=== PATIENT | female | born 1955 | race Caucasian/White ===

== ENCOUNTER 2017-04-08 22:38 | Inpatient (IN) | payer MEDICARE ==
[~2017-04-08] VITALS: Ht 160 cm; Wt 49.0 kg
--- NOTE | 2017-04-08 22:38 | NUR ---
ERNESTO MATHIAS FROM HOTEL ROOM. PER EMS REPORT, HOTEL STAFF CALLED 911 FOR PT ETOH. PLACED ON MONITOR . AWAITING MD ORDER
--- NOTE | 2017-04-08 23:11 | NUR ---
GRINDING MACHINE OPERATOR AT BEDSIDE FOR BLOOD DRAW
[2017-04-08] MEDS: IV NS 0.9% 1,000 ML BAG IV ONE ×2 (23:17→23:27)
[2017-04-08 23:27] LABS: BASOPHILS % (AUTO) 0.1 % (0.0-2.0); HEMATOCRIT 39 % (33-45); HEMOGLOBIN 13.3 g/dL (11.5-14.8); LYMPHOCYTES # (AUTO) 0.4 /CMM (0.8-4.8); LYMPHOCYTES % (AUTO) 6.1 % (20.0-44.0); MEAN CORPUSCULAR HEMOGLOBIN 33 PG (26.0-33.0); MEAN CORPUSCULAR HGB CONC 34 g/dl (31.0-36.0); MEAN CORPUSCULAR VOLUME 97 fL (82-100); MONOCYTES # (AUTO) 0.3 /CMM (0.1-1.30); MONOCYTES % (AUTO) 4.3 % (2.0-12.0); NEUTROPHILS # (AUTO) 6.6 /CMM (1.8-8.9); NEUTROPHILS % (AUTO) 89.5 % (43.0-81.0); PLATELET COUNT (AUTO) 139 /CMM (150-450); RDW COEFFICIENT OF VARIATION 16.2 (11.5-15.0); RED BLOOD CELL COUNT(AUTO) 4.04 MIL/uL (4.0-5.2); WHITE BLOOD COUNT (AUTO) 7.4 K/uL (4.3-11.0)
--- NOTE | 2017-04-08 23:28 | NUR ---
GAVE REPORT TO ANDRES FOR HANH
[2017-04-08 23:39] LABS: CALCIUM, SERUM 8.1 mg/dL (8.5-10.1); CARBON DIOXIDE 22 mmol/L (21-32); CHLORIDE 85 mmol/L (98-107); CREATININE 0.5 mg/dL (0.6-1.3); GLUCOSE 115 mg/dL (74-106); POTASSIUM 4.3 mmol/L (3.5-5.1); SODIUM SERUM 123 mmol/L (136-145); UREA NITROGEN, BLOOD 8 mg/dL (7-18)
[2017-04-08 23:41] LABS: INR 0.89 (0.87-1.13); PROTHROMBIN TIME 9.5 SECS (9.5-12.7)
[2017-04-08 23:44] LABS: ALANINE AMINOTRANSFERASE 177 U/L (12-78); ALBUMIN 4.5 g/dL (3.4-5.0); ALKALINE PHOSPHATASE 130 U/L (46-116); ASPARTATE AMINOTRANSFERASE 203 U/L (15-37); BILIRUBIN,DIRECT 0.3 mg/dL (0.0-0.2); BILIRUBIN,TOTAL 0.9 mg/dL (0.2-1.0); TOTAL PROTEIN, SERUM 7.5 g/dL (6.4-8.2)
[2017-04-08 23:45] LABS: ACETAMINOPHEN 0 ug/ml (10-30); SALICYLATE 1.1 mg/dL (2.8-20.0); VALPROIC ACID < 3 ug/mL (50-100)
[2017-04-09] MEDS ORDERED: diphenhydrAMINE HCL 50 MG/ML VIAL ONE (00:13)
[2017-04-09] MEDS ORDERED: HALOPERIDOL LACTATE INJ 5 MG/ML VIAL ONE (00:14)
--- NOTE | 2017-04-09 00:32 | NUR ---
MEDICATED PT ORDERED. 5MG HALDOL IVP AND 12.5 BENADRYL IVP
[2017-04-09] MEDS ORDERED: HALOPERIDOL LACTATE INJ 5 MG/ML VIAL IV ONE (01:00)
[2017-04-09] MEDS ORDERED: diphenhydrAMINE HCL 50 MG/ML VIAL IV ONE (01:00)
[2017-04-09] MEDS ORDERED: IV NS 0.9% 1,000 ML BAG IV ONE (02:30)
--- NOTE | 2017-04-09 02:50 | NUR ---
RECEIVED PT, PT APPEARS COMFORTABLE. NO SOB NOTED. NAD NOTED. NO NVD AT THIS TIME. PT HAS IV ON LEFT FOOT 22G, INTACT AND PATENT. NO S/S INFECTION OR INFILTRATION NOTED.
--- NOTE | 2017-04-09 02:51 | NUR ---
PT NOTED WITH DISCOLORATION THROUGHOUT BODY. PT AOX3.
--- NOTE | 2017-04-09 02:54 | NUR ---
PT TO CT VIA DIASY
[2017-04-09] MEDS ORDERED: Thiamine 100 MG/ML VIAL ONE (02:57)
[2017-04-09] MEDS ORDERED: Magnesium 1GM/D5W 100ML PREMIX 200 ML IV ONE (02:57)
[2017-04-09] MEDS ORDERED: Thiamine 100 MG in IV D5W 50 ML IV ONE (03:00)
[2017-04-09] MEDS ORDERED: Magnesium 1 GM/2 ML VIAL IV ONE (03:00)
[2017-04-09] MEDS ORDERED: IV D5/0.45 NACL 1,000 ML IV ONE (03:00)
--- NOTE | 2017-04-09 03:11 | NUR ---
PT RETURNED FROM CT.
--- NOTE | 2017-04-09 03:25 | NUR ---
LAB AT BEDSIDE FOR BLOOD DRAW.
[2017-04-09 03:46] LABS: CALCIUM, SERUM 6.8 mg/dL (8.5-10.1); CREATININE 0.5 mg/dL (0.6-1.3); POTASSIUM 4.1 mmol/L (3.5-5.1)
[2017-04-09] MEDS ORDERED: LORAZEPAM INJ 2 MG/ML VIAL ONE (04:14)
[2017-04-09] MEDS ORDERED: LORAZEPAM INJ 2 MG/ML VIAL IV ONE (04:30)
--- NOTE | 2017-04-09 06:19 | NUR ---
PER ENMA TO FAX CT HEAD RESULTS.
--- NOTE | 2017-04-09 07:23 | NUR ---
REPORT GIVEN TO MARY GRACE JOSUE FOR HANH.
--- NOTE | 2017-04-09 08:00 | NUR ---
Patient is resting comfortably in bed with eyes closed. Easily aroused. VSS
--- NOTE | 2017-04-09 11:15 | NUR ---
PT AAOX3. NOTED POOPED ALL OVER HERSELF. VSS.
--- NOTE | 2017-04-09 11:50 | NUR ---
PT ABLE TO AMBULATE, NOTED STEADY GAIT BUT REFUSES TO BE DISCHARGED. PULLED OUT IV ACCESS. MADE AWARE.
--- NOTE | 2017-04-09 12:15 | NUR ---
CALLED [facility] CLINICIAN FOR PSYCH EVAL
[2017-04-09] MEDS ORDERED: DIAZ5TAB4 PO (12:58)
[2017-04-09] MEDS ORDERED: CARI350T PO (12:58)
--- NOTE | 2017-04-09 16:10 | NUR ---
REPORT GIVEN TO ESTRELLA BRODY FOR GPS ROOM 219
[2017-04-09 16:45] VITALS: BP 155/96
--- NOTE | 2017-04-09 16:45 | NUR ---
[id number]: PT IS 61 YEARS OLD FEMALE ADMITTED ON 5149 FOR GRAVELY DISABLED. ACCORDING TO THE HOLD, PT CAME FROM A HOTEL ROOM. PT REPORTED TO HAVE A HISTORY OF DEPRESSION, AND ANXIETY. PT HAD FECES ON HANDS AND FINGERNAILS. UPON [id number] ASSESSMENT PT APPEARED ANXIOUS, RESTLESS, UNKEMPT, DISHEVELED. MALODOROUS. PT UNABLE TO GIVE ADDRESS WHERE PT LIVES. PT UNABLE TO CARE FOR SELF. PT STATED, "I HAVE SEVERE ANXIETY. I'M GOING THROUGH A DIVORCE, I CAN'T STAND UP OR TAKE CARE OF MYSELF." PT HAS DEPRESSION, PSYCHOSIS, EPILEPSY. NOTIFIED DR. DUCKWORTH AND DR. HARRISON. NOTIFIED FAMILY. BELONGINGS STORED AND DOCUMENTED. MRSA DONE. SKIN ASSESSMENT DONE. PROVIDE PT'S RIGHT BOOKLET. DISCUSS MEAL TIMES, FRESH AIR BREAKS.ALL PAPERWORK AND COMPUTER DOCUMENTATION. WILL ENDORSE TO INCOMING NURSE TO DOUBLE CHECK ALL PAPERWORK AND COMPUTER DOCUMENTATION.
[2017-04-09] MEDS ORDERED: MAGNESIUM HYDROXIDE 30 ML UDC PO PRN (17:00)
[2017-04-09] MEDS ORDERED: MAG HYDROX/AL HYDROX/SIMETH 30 ML UDC PO PRN (17:00)
[2017-04-09] MEDS: clonazePAM 0.5 MG TABLET PO PRN (18:07)
--- NOTE | 2017-04-09 18:07 | NUR ---
[id number]: GAVE KLONOPIN 0.25 MG PO DUE TO SEVERE ANXIETY UPON PT REQUEST AND WILL CONTINUE TO MONITOR FOR EFFECTIVENESS OF MEDICATION
[2017-04-09 20:20] VITALS: BP 154/93
[2017-04-10] MEDS: clonazePAM 0.5 MG TABLET PO PRN (00:02)
--- NOTE | 2017-04-10 01:14 | NUR ---
Pt has been quite passive, anhedonic, blunted, withdrawn, with depressed mood, & anxious but redirectable.
[2017-04-10 07:20] LABS: BASOPHILS % (AUTO) 0.1 % (0.0-2.0); EOSINOPHILS % (AUTO) 0.2 % (0.0-6.0); HEMATOCRIT 34 % (33-45); HEMOGLOBIN 11.7 g/dL (11.5-14.8); LYMPHOCYTES # (AUTO) 0.8 /CMM (0.8-4.8); LYMPHOCYTES % (AUTO) 17.2 % (20.0-44.0); MEAN CORPUSCULAR HEMOGLOBIN 33 PG (26.0-33.0); MEAN CORPUSCULAR HGB CONC 35 g/dl (31.0-36.0); MEAN CORPUSCULAR VOLUME 95 fL (82-100); MONOCYTES # (AUTO) 0.4 /CMM (0.1-1.30); MONOCYTES % (AUTO) 8.2 % (2.0-12.0); NEUTROPHILS # (AUTO) 3.3 /CMM (1.8-8.9); NEUTROPHILS % (AUTO) 74.3 % (43.0-81.0); PLATELET COUNT (AUTO) 100 /CMM (150-450); RDW COEFFICIENT OF VARIATION 15.9 (11.5-15.0); RED BLOOD CELL COUNT(AUTO) 3.51 MIL/uL (4.0-5.2); WHITE BLOOD COUNT (AUTO) 4.4 K/uL (4.3-11.0)
[2017-04-10 07:48] LABS: ALBUMIN 3.8 g/dL (3.4-5.0); BILIRUBIN,TOTAL 1.6 mg/dL (0.2-1.0); CALCIUM, SERUM 7.8 mg/dL (8.5-10.1); CREATININE 0.5 mg/dL (0.6-1.3); MAGNESIUM 1.8 mg/dL (1.8-2.4); PHOSPHORUS 2.1 mg/dL (2.5-4.9); TOTAL PROTEIN, SERUM 6.9 g/dL (6.4-8.2)
[2017-04-10 08:00] VITALS: BP 157/96
[2017-04-10 08:13] LABS: POTASSIUM 2.7 mmol/L (3.5-5.1)
--- NOTE | 2017-04-10 08:30 | NUR ---
gps superintendent water and sewer systems: notes dr. hermosillo notified and made aware re: potassium level and anxiety and refusing klonopin when offered, pt wants ativan instead with orders. orders read back and carried out and acknowledged.
[2017-04-10] MEDS: THIAMINE HCL 100 MG TABLET PO SCH (08:53)
[2017-04-10] MEDS: MULTIVITAMINS,THERAGRAN 1 UDTAB TABLET PO SCH (08:53)
[2017-04-10] MEDS: FOLIC ACID 1 MG TABLET PO SCH (08:53)
[2017-04-10] MEDS: LORAZEPAM 1 MG TABLET PO PRN ×3 (08:53→21:20)
[2017-04-10] MEDS ORDERED: POTASSIUM CHLORIDE 20 MEQ TAB.PRT.SR PO ONE ×3 (09:00→21:00)
[2017-04-10] MEDS: QUETIAPINE FUMARATE 25 MG TABLET PO SCH ×2 (13:11→16:41)
--- NOTE | 2017-04-10 14:50 | NUR ---
Initial Discharge Plan: Per patient, she was staying in a hotel for two weeks but has a home with her located at [address] [place] [address] ([phone]). Per patient, she would like to return home upon discharge. fabric worker spoke to patient's ([phone]) who stated that they have not lived together for over a year but sometimes she does stay with him. Patient possibly will need placement. fabric worker will help form a safe and proper discharge.
[2017-04-10] MEDS ORDERED: K PHOS NEUTRAL 250 MG TABLET PO ONE (15:30)
[2017-04-10 16:00] VITALS: BP 157/74
--- NOTE | 2017-04-10 19:30 | NUR ---
GPS RN NOTE, RECEIVED PATIENT AWAKE AND IN BED, NO S/S OR COMPLAINTS OF PAIN AT THIS TIME. PATIENT IS DISPLAYING NO S/S OF APPARENT DISTRESS AT THIS TIME. PATIENT BREATHING IS UNLABORED WITH EQUAL RISE AND FALL OF THE CHEST. PATIENT IS ALERT AND ORIENTED X 3 ON ROOM AIR WITH A SPO2 97%. PATIENT COMPLAINT WITH MEDICATION, ANXIOUS, COOPERATIVE, FORGETFUL, GUARDED, SUSPICIOUS, AND NEEDS REORIENTATION. PATIENT DENIES SUICIDE AND HOMICIDAL IDEATIONS AT THIS TIME. PATIENT ASSISTED WITH TURNING AND REPOSITIONING Q2HR AND PRN FOR COMFORT AND CIRCULATION. PATIENT HAS NO NEEDS AT THIS TIME. PATIENT EDUCATED ON THE USE OF THE CALL WONG. PATIENT BED SIDE RAILS UP X2 FOR SAFETY, BED IS LOCKED AND LOW WILL CONTINUE TO MONITOR AND MAINTAIN SAFETY.
[2017-04-10 19:54] VITALS: BP 137/87
[2017-04-10] MEDS: MIRTAZAPINE 15 MG TABLET PO SCH (21:20)
--- NOTE | 2017-04-10 21:20 | NUR ---
GPS RN NOTE, PATIENT HAS A COMPLAINT OF FEELING ANXIOUS AND WOULD LIKE MEDICATION TO HELP CALM HER DOWN. PATIENT VITAL SIGNS ARE STABLE. GAVE ATIVAN 1MG PO Q4HR PRN ORDERED. WILL REASSESS FOR ANXIETY AND I WILL CONTINUE TO MONITOR THIS PATIENT.
[2017-04-11] MEDS: LORAZEPAM 1 MG TABLET PO PRN ×4 (01:25→21:19)
[2017-04-11 07:34] LABS: CALCIUM, SERUM 8.5 mg/dL (8.5-10.1); CREATININE 0.6 mg/dL (0.6-1.3); PHOSPHORUS 1.8 mg/dL (2.5-4.9); POTASSIUM 4.1 mmol/L (3.5-5.1)
[2017-04-11 08:00] VITALS: BP 128/93
[2017-04-11] MEDS: THIAMINE HCL 100 MG TABLET PO SCH (08:03)
[2017-04-11] MEDS: MULTIVITAMINS,THERAGRAN 1 UDTAB TABLET PO SCH (08:03)
[2017-04-11] MEDS: QUETIAPINE FUMARATE 25 MG TABLET PO SCH ×2 (08:03→16:39)
[2017-04-11] MEDS: FOLIC ACID 1 MG TABLET PO SCH (08:03)
[2017-04-11] MEDS ORDERED: K PHOS NEUTRAL 250 MG TABLET PO ONE (13:00)
[2017-04-11 16:00] VITALS: BP 120/67
--- NOTE | 2017-04-11 16:08 | NUR ---
gum worker spoke to patient regarding placement. Patient stated that she did not want placement she wants to return home with her . gum worker informed patient that it does not appear that it is not an option because her stated that she could only be there for a little while and than she would have to go to a hotel. Patient stated that's fine but I wan to go home with my . gum worker will attempt to speak to patient again tomorrow.
[2017-04-11 20:16] VITALS: BP 123/88
[2017-04-11] MEDS: MIRTAZAPINE 15 MG TABLET PO SCH (21:19)
[2017-04-12] MEDS ORDERED: Z GUARD REMEDY 2 OZ OINT TP PRN (01:30)
[2017-04-12] MEDS: LORAZEPAM 1 MG TABLET PO PRN ×5 (02:36→21:02)
[2017-04-12 07:38] LABS: BILIRUBIN,URINE NEGATIVE (NEGATIVE); BLOOD, URINE 1+ Ery/uL (NEGATIVE); COLOR,URINE YELLOW (YELLOW); KETONES,URINE NEGATIVE (NEGATIVE); LEUKOCYTE ESTERASE ,URINE 3+ (NEGATIVE); NITRITE, URINE POSITIVE (NEGATIVE); PH,URINE 6.5 (5.0-8.0); PROTEIN,URINE 1+ mg/dl (NEGATIVE); UGLUCOSE NEGATIVE (NEGATIVE)
[2017-04-12 07:43] LABS: CALCIUM, SERUM 8.8 mg/dL (8.5-10.1); CREATININE 0.8 mg/dL (0.6-1.3); MAGNESIUM 1.5 mg/dL (1.8-2.4); POTASSIUM 3.4 mmol/L (3.5-5.1)
[2017-04-12 07:45] LABS: APPEARANCE,URINE CLOUDY (CLEAR)
[2017-04-12 07:47] LABS: BACTERIA,URINE 2+ /HPF (None Seen); SQUAMOUS EPITHELIAL CELL,UR Few /HPF (None Seen)
[2017-04-12 07:53] LABS: BASOPHILS % (AUTO) 0.2 % (0.0-2.0); EOSINOPHILS # (AUTO) 0.1 /CMM (0.0-0.7); EOSINOPHILS % (AUTO) 1.6 % (0.0-6.0); HEMATOCRIT 35 % (33-45); HEMOGLOBIN 11.9 g/dL (11.5-14.8); LYMPHOCYTES % (AUTO) 47.5 % (20.0-44.0); MEAN CORPUSCULAR HEMOGLOBIN 34 PG (26.0-33.0); MEAN CORPUSCULAR HGB CONC 34 g/dl (31.0-36.0); MEAN CORPUSCULAR VOLUME 99 fL (82-100); MONOCYTES # (AUTO) 0.5 /CMM (0.1-1.30); NEUTROPHILS # (AUTO) 1.6 /CMM (1.8-8.9); NEUTROPHILS % (AUTO) 38.7 % (43.0-81.0); PLATELET COUNT (AUTO) 171 /CMM (150-450); RDW COEFFICIENT OF VARIATION 16.1 (11.5-15.0); RED BLOOD CELL COUNT(AUTO) 3.54 MIL/uL (4.0-5.2); WHITE BLOOD COUNT (AUTO) 4.2 K/uL (4.3-11.0)
[2017-04-12 08:00] VITALS: BP 140/98
--- NOTE | 2017-04-12 09:00 | NUR ---
refused am seroquel.
[2017-04-12] MEDS: MULTIVITAMINS,THERAGRAN 1 UDTAB TABLET PO SCH (09:27)
[2017-04-12] MEDS: THIAMINE HCL 100 MG TABLET PO SCH (09:28)
[2017-04-12] MEDS: QUETIAPINE FUMARATE 25 MG TABLET PO SCH ×2 (09:28→18:09)
[2017-04-12] MEDS: FOLIC ACID 1 MG TABLET PO SCH (09:28)
[2017-04-12] MEDS ORDERED: MAGNESIUM OXIDE 400 MG TABLET PO ONE (11:30)
[2017-04-12] MEDS ORDERED: POTASSIUM CHLORIDE 20 MEQ TAB.PRT.SR PO ONE (12:30)
[2017-04-12 16:00] VITALS: BP 141/95
--- NOTE | 2017-04-12 16:10 | NUR ---
fuel system maintenance worker attempted to contact patient's Ben Jose ([phone]) However, he was unavailable. fuel system maintenance worker left him a detailed message with her contact information and will attempt again tomorrow.
--- NOTE | 2017-04-12 18:00 | NUR ---
DR. HARRISON,DR. ALBARRAN IN TO SEE PT.
--- NOTE | 2017-04-12 19:03 | NUR ---
GIVEN ATIVAN PO 3X THIS SHIFT.
[2017-04-12] MEDS: MIRTAZAPINE 15 MG TABLET PO SCH (21:35)
[2017-04-12] MEDS: TEMAZEPAM 7.5 MG CAPSULE PO PRN (22:49)
[2017-04-12] MEDS: ACETAMINOPHEN 325 MG TABLET PO PRN (22:49)
[2017-04-13] MEDS: LORAZEPAM 1 MG TABLET PO PRN ×4 (03:08→17:28)
[2017-04-13 07:37] LABS: CALCIUM, SERUM 9.1 mg/dL (8.5-10.1); CREATININE 0.5 mg/dL (0.6-1.3); MAGNESIUM 1.5 mg/dL (1.8-2.4); PHOSPHORUS 3.4 mg/dL (2.5-4.9); POTASSIUM 3.7 mmol/L (3.5-5.1)
[2017-04-13 08:00] VITALS: BP 147/95
[2017-04-13] MEDS: THIAMINE HCL 100 MG TABLET PO SCH (08:34)
[2017-04-13] MEDS: FOLIC ACID 1 MG TABLET PO SCH (08:34)
[2017-04-13] MEDS: MULTIVITAMINS,THERAGRAN 1 UDTAB TABLET PO SCH (08:34)
[2017-04-13] MEDS: QUETIAPINE FUMARATE 25 MG TABLET PO SCH ×2 (08:39→16:39)
--- NOTE | 2017-04-13 10:03 | NUR ---
dope and fabric worker spoke to patient's Ben Jose ([phone]) who confirmed that he is in charge of the finances and agreed that going to an Assisted Living Facility would be a good option for the patient. Ben agreed to pay for the facility if patient agrees to go. dope and fabric worker will follow-up.
--- NOTE | 2017-04-13 10:05 | NUR ---
stock house worker faxed initial review packer denture to [facility] [address] [facility] [place] [address] ([phone]). stock house worker will follow-up.
[2017-04-13] MEDS ORDERED: MAGNESIUM OXIDE 400 MG TABLET PO ONE (12:00)
[2017-04-13 16:00] VITALS: BP 148/96
--- NOTE | 2017-04-13 19:54 | NUR ---
GPS/RN NOTE: AWAKE, ALERT, ORIENTED X3, CALM. COOPERATIVE, RESPONDS WHEN ENGAGED. NO ACUTE DISTRESS NOTED.
--- NOTE | 2017-04-13 20:12 | NUR ---
GPS/RN NOTE: SITTING UP IN BED, AWAKE, ALERT, ORIENTED X3, NO APPARENT DISTRESS NOTED. WILL CONTINUE TO MONITOR Q 15 MINS. FOR SAFETY AND BEHAVIOR.
[2017-04-13] MEDS: MIRTAZAPINE 15 MG TABLET PO SCH (21:28)
[2017-04-14 07:45] LABS: CALCIUM, SERUM 8.9 mg/dL (8.5-10.1); CREATININE 0.6 mg/dL (0.6-1.3); MAGNESIUM 1.7 mg/dL (1.8-2.4); POTASSIUM 3.3 mmol/L (3.5-5.1)
[2017-04-14 08:00] VITALS: BP 164/96
[2017-04-14] MEDS: THIAMINE HCL 100 MG TABLET PO SCH (09:00)
[2017-04-14] MEDS: QUETIAPINE FUMARATE 25 MG TABLET PO SCH ×3 (09:00→16:29)
[2017-04-14] MEDS: FOLIC ACID 1 MG TABLET PO SCH (09:00)
[2017-04-14] MEDS: MULTIVITAMINS,THERAGRAN 1 UDTAB TABLET PO SCH (09:00)
[2017-04-14] MEDS ORDERED: MAGNESIUM OXIDE 400 MG TABLET PO ONE (10:00)
[2017-04-14] MEDS: ACETAMINOPHEN 325 MG TABLET PO PRN ×2 (10:50→16:29)
--- NOTE | 2017-04-14 10:52 | NUR ---
GPS RN: TYLENOL 650MG ADMINISTERED PO FO C/O HEADACHE AND STOMACH PAIN RATING 8/10. PATIENT'S VS STABLE, HOWEVER, SHE IS ANXIOUS AND RESTLESS, PROVIDED WITH CALM AND SAFE ENVIRONMENT, INSTRUCTED ON RELAXATION TECHNIQUES. CONTINUE TO MONITOR
[2017-04-14] MEDS ORDERED: POTASSIUM CHLORIDE 20 MEQ TAB.PRT.SR PO SCH (11:00)
[2017-04-14] MEDS: LORAZEPAM 1 MG TABLET PO PRN ×3 (11:12→22:19)
--- NOTE | 2017-04-14 11:14 | NUR ---
GPS RN: PATIENT IS ANXIOUS AND RESTLESS AND IS ASKING FOR A MEDICATION TO CALM HER DOWN. ADMINISTERED ATIVAN 1MG ORDERED PO. INSTRUCTED ON RELAXATION TECHNIQUE, CONTINUE TO MONITOR THE PATIENT.
[2017-04-14] MEDS ORDERED: hydrALAZINE HCL 25 MG TABLET PO PRN (15:30)
[2017-04-14 16:00] VITALS: BP 125/84
[2017-04-14] MEDS: AMLODIPINE BESYLATE 5 MG TABLET PO SCH (16:29)
--- NOTE | 2017-04-14 16:45 | NUR ---
farmworkers spoke to patient's Ben Jose ([phone]) who stated that he had spoken to Maureen from [facility] ([phone]) and agreed that it was a good option for the patient. Ben stated that Maureen would come assess patient on Monday. farmworkers will follow-up.
--- NOTE | 2017-04-14 19:24 | NUR ---
GPS/RN NOTE: PATIENT AWAKE, ALERT, NO APPARENT DISTRESS NOTED.
[2017-04-14 20:56] VITALS: BP 149/98
--- NOTE | 2017-04-14 21:12 | NUR ---
GPS/RN NOTE: PATIENT REFUSED HER NIGHT TIME MEDICATIONS. EXPLAINED BENEFITS X2, AND STILL REFUSED. STATED," I AM NOT TAKING MY MEDICATIONS, I WILL RUN ERRAND, GO TO THE BANK IN 15 MINS." WILL TRY LATER.
[2017-04-14] MEDS: MAGNESIUM OXIDE 400 MG TABLET PO SCH (22:18)
[2017-04-14] MEDS: MIRTAZAPINE 15 MG TABLET PO SCH (22:18)
[2017-04-15] MEDS: LORAZEPAM 1 MG TABLET PO PRN ×3 (07:12→19:36)
--- NOTE | 2017-04-15 07:13 | NUR ---
GPS/RN NOTE: PATIENT FEELING ANXIOUS AND SHAKING, LORAZEPAM 1 MG TAB PO GIVEN.
[2017-04-15 08:00] VITALS: BP 131/95
[2017-04-15] MEDS: AMLODIPINE BESYLATE 5 MG TABLET PO SCH (08:24)
[2017-04-15] MEDS: FOLIC ACID 1 MG TABLET PO SCH (08:24)
[2017-04-15] MEDS: ACETAMINOPHEN 325 MG TABLET PO PRN (08:24)
[2017-04-15] MEDS: QUETIAPINE FUMARATE 25 MG TABLET PO SCH ×3 (08:24→16:01)
[2017-04-15] MEDS: MULTIVITAMINS,THERAGRAN 1 UDTAB TABLET PO SCH (08:24)
[2017-04-15] MEDS: THIAMINE HCL 100 MG TABLET PO SCH (08:24)
[2017-04-15] MEDS: SULFAMETH/TRIMETH 800/160 MG 1 UDTAB TABLET PO SCH ×2 (11:26→21:25)
--- NOTE | 2017-04-15 13:39 | NUR ---
GPS RN: PATIENT IS ANXIOUS AND RESTLESS, STANDING BY THE NURSING STATION AND ASKING FOR ATIVAN, NOT IN ANY PHYSICAL DISTRESS, INSTRUCTED ON RELAXATION AND ADMINISTERED ATIVAN 1MG PO ORDERED. CONTINUE TO MONITOR THE PATIENT.
[2017-04-15 16:06] VITALS: BP 126/78
--- NOTE | 2017-04-15 19:40 | NUR ---
GPS RN: PATIENT IS ANXIOUS AND RESTLESS,ASKING FOR ATIVAN,, INSTRUCTED ON RELAXATION AND ADMINISTERED ATIVAN 1MG PO ORDERED. CONTINUE TO MONITOR THE PATIENT.
[2017-04-15 20:00] VITALS: BP 122/85
[2017-04-15] MEDS: MIRTAZAPINE 15 MG TABLET PO SCH (21:25)
[2017-04-15] MEDS: TEMAZEPAM 7.5 MG CAPSULE PO PRN (21:25)
[2017-04-15] MEDS: MAGNESIUM OXIDE 400 MG TABLET PO SCH (21:31)
[2017-04-15] MEDS ORDERED: POTASSIUM CHLORIDE 10 MEQ TABLET.SA ONE (23:28)
[2017-04-15] MEDS ORDERED: POTASSIUM CHLORIDE 10 MEQ TABLET.SA PO ONE (23:30)
--- NOTE | 2017-04-15 23:36 | NUR ---
GPS RN NOTES DR. RIVERS WAS IN THE UNIT AND NOTIFIED DR. RIVERS POTASSIUM LEVEL WAS 3.3,NEW ORDERS 30 MEQ PO X 1,AND BMP FOR AM , NEW RECEIVED AND CARRIED OUT.
--- NOTE | 2017-04-16 06:15 | NUR ---
RN GPS NOTES PATIENT RESTING HER BED,EASILY GETS AGITED , NO ACUTE DISTRESS NOTED ,NO CHANGES IN STATUS. ALL NEEDS ATTENDED TO. WILL ENDORSE TO NEXT SHIFT FOR CONTINUITY CARE.
[2017-04-16] MEDS: LORAZEPAM 1 MG TABLET PO PRN ×3 (07:06→17:39)
--- NOTE | 2017-04-16 07:08 | NUR ---
GPS RN: PATIENT IS ANXIOUS AND RESTLESS,ASKING FOR ATIVAN,, INSTRUCTED ON RELAXATION AND ADMINISTERED ATIVAN 1MG PO ORDERED. CONTINUE TO MONITOR THE PATIENT.
--- NOTE | 2017-04-16 07:26 | NUR ---
RN GPS NOTES UPON TAKING ATIVAN 1 MG FROM ATIVAN 1MG FROM THE OMNICELL, BUSINESS RULES ANALYST ACCIDENTALLY TYPED IN 21 THE COUNT, INSTEAD OF 18 SO BUSINESS RULES ANALYST THEN RETURNED THE SAID MEDICATION TO DOUBLE CHECK ON THE NUMBER/COUNT OF THE MEDICATION-ATIVAN 1MG. AT 07:05, BUSINESS RULES ANALYST PULLED OUT ANOTHER ATIVAN 1MG FOR THE SAME PATIENT AND FOUND 17 PILLS REMAINING. BUSINESS RULES ANALYST THEN GAVE MEDICATION TO THE PATIENT. THIS SAID INCIDENT WITNESSED BY EHSAN MCDANIELS RN. CYCLE COUNTING DONE WITH MARY GRACE MARTINEZ. AND FOUND 16 COUNT FOR ATIVAN 1MG.
[2017-04-16 07:30] LABS: CALCIUM, SERUM 9.1 mg/dL (8.5-10.1); CREATININE 0.6 mg/dL (0.6-1.3)
[2017-04-16 08:00] VITALS: BP 136/71
[2017-04-16] MEDS: AMLODIPINE BESYLATE 5 MG TABLET PO SCH (08:45)
[2017-04-16] MEDS: FOLIC ACID 1 MG TABLET PO SCH (08:45)
[2017-04-16] MEDS: MULTIVITAMINS,THERAGRAN 1 UDTAB TABLET PO SCH (08:45)
[2017-04-16] MEDS: SULFAMETH/TRIMETH 800/160 MG 1 UDTAB TABLET PO SCH ×2 (08:45→21:18)
[2017-04-16] MEDS: QUETIAPINE FUMARATE 25 MG TABLET PO SCH ×4 (08:45→21:19)
[2017-04-16] MEDS: THIAMINE HCL 100 MG TABLET PO SCH (08:45)
[2017-04-16 16:00] VITALS: BP 112/66
[2017-04-16] MEDS ORDERED: ONDANSETRON HCL/PF 4 MG/2 ML VIAL ONE (16:11)
[2017-04-16] MEDS ORDERED: MORPHINE SULFATE INJ 4 MG/ML DISP.SYRIN ONE (16:11)
[2017-04-16 20:09] VITALS: BP 113/78
[2017-04-16] MEDS: MIRTAZAPINE 15 MG TABLET PO SCH (21:18)
[2017-04-16] MEDS: MAGNESIUM OXIDE 400 MG TABLET PO SCH (21:19)
[2017-04-16] MEDS: TEMAZEPAM 7.5 MG CAPSULE PO PRN (22:47)
--- NOTE | 2017-04-17 06:32 | NUR ---
RN GPS NOTES PATIENT RESTING HER BED,EASILY GETS AGITED , NO ACUTE DISTRESS NOTED ,NO CHANGES IN STATUS. ALL NEEDS ATTENDED ANTICIPATED . WILL ENDORSE TO NEXT SHIFT FOR CONTINUITY CARE
[2017-04-17 08:00] VITALS: BP 121/82
[2017-04-17 08:59] VITALS: BP 121/82
[2017-04-17] MEDS: FOLIC ACID 1 MG TABLET PO SCH (09:02)
[2017-04-17] MEDS: MULTIVITAMINS,THERAGRAN 1 UDTAB TABLET PO SCH (09:02)
[2017-04-17] MEDS: AMLODIPINE BESYLATE 5 MG TABLET PO SCH (09:02)
[2017-04-17] MEDS: SULFAMETH/TRIMETH 800/160 MG 1 UDTAB TABLET PO SCH ×2 (09:02→21:38)
[2017-04-17] MEDS: THIAMINE HCL 100 MG TABLET PO SCH (09:02)
[2017-04-17] MEDS: LORAZEPAM 1 MG TABLET PO PRN ×2 (09:27→18:35)
--- NOTE | 2017-04-17 09:27 | NUR ---
GPS/RN PATIENT ANXIOUS, AGITATED, REQUESTED ATIVAN, ADMINISTERED ATIVAN PO ORDERED, WILL CONTINUE TO MONITOR.
[2017-04-17] MEDS: QUETIAPINE FUMARATE 25 MG TABLET PO SCH ×4 (09:28→21:39)
[2017-04-17 16:00] VITALS: BP 102/68
--- NOTE | 2017-04-17 16:12 | NUR ---
Ada from [facility] [address] [facility] [place] [address] ([phone]) came to assess the patient at 10:30am.
--- NOTE | 2017-04-17 16:17 | NUR ---
tree worker spoke to patient's Ben Jose ([phone]) and informed him that Ada from [facility] did come to assess the patient however, they are still determining if she is appropriate for their facility. tree worker informed patient's that if [facility] does not accept and patient is still refusing placement, than he would have to pick her up. Patient's agreed and stated that he would pick her up.
--- NOTE | 2017-04-17 18:36 | NUR ---
GPS/RN PATIENT ANXIOUS, AGITATED, REQUESTED ATIVAN, ADMINISTERED ATIVAN PO ORDERED, WILL CONTINUE TO MONITOR.
[2017-04-17 20:05] VITALS: BP 113/74
[2017-04-17] MEDS: TEMAZEPAM 7.5 MG CAPSULE PO PRN (21:39)
[2017-04-17] MEDS: MAGNESIUM OXIDE 400 MG TABLET PO SCH (21:39)
[2017-04-17] MEDS: MIRTAZAPINE 15 MG TABLET PO SCH (22:15)
[2017-04-18 08:32] VITALS: BP 113/77
[2017-04-18] MEDS: QUETIAPINE FUMARATE 25 MG TABLET PO SCH ×4 (08:33→21:08)
[2017-04-18] MEDS: SULFAMETH/TRIMETH 800/160 MG 1 UDTAB TABLET PO SCH ×2 (08:33→20:47)
[2017-04-18] MEDS: THIAMINE HCL 100 MG TABLET PO SCH (08:34)
[2017-04-18] MEDS: FOLIC ACID 1 MG TABLET PO SCH (08:34)
[2017-04-18] MEDS: AMLODIPINE BESYLATE 5 MG TABLET PO SCH (08:34)
[2017-04-18] MEDS: MULTIVITAMINS,THERAGRAN 1 UDTAB TABLET PO SCH (08:34)
[2017-04-18] MEDS: LORAZEPAM 1 MG TABLET PO PRN ×3 (10:46→20:48)
--- NOTE | 2017-04-18 10:47 | NUR ---
GPS/RN PATIENT REQUESTED ATIVAN FOR ANXIETY, ADMINISTERED ORDERED, WILL CONTINUE TO MONITOR.
[2017-04-18 16:12] VITALS: BP 122/72
[2017-04-18 20:15] VITALS: BP 114/75
[2017-04-18] MEDS: ACETAMINOPHEN 325 MG TABLET PO PRN (20:48)
[2017-04-18] MEDS: MIRTAZAPINE 15 MG TABLET PO SCH (21:07)
[2017-04-18] MEDS: MAGNESIUM OXIDE 400 MG TABLET PO SCH (21:08)
[2017-04-19 08:16] VITALS: BP 114/78
[2017-04-19] MEDS: MULTIVITAMINS,THERAGRAN 1 UDTAB TABLET PO SCH (08:38)
[2017-04-19] MEDS: SULFAMETH/TRIMETH 800/160 MG 1 UDTAB TABLET PO SCH ×2 (08:38→21:36)
[2017-04-19] MEDS: THIAMINE HCL 100 MG TABLET PO SCH (08:38)
[2017-04-19] MEDS: FOLIC ACID 1 MG TABLET PO SCH (08:38)
[2017-04-19] MEDS: AMLODIPINE BESYLATE 5 MG TABLET PO SCH (08:39)
[2017-04-19] MEDS: LORAZEPAM 1 MG TABLET PO PRN ×3 (09:06→22:43)
[2017-04-19] MEDS: QUETIAPINE FUMARATE 25 MG TABLET PO SCH ×4 (10:42→21:37)
--- NOTE | 2017-04-19 16:08 | NUR ---
pharmaceutical worker spoke to patient regarding placement patient stated that she wants to go to a board and care. pharmaceutical worker will follow-up.
--- NOTE | 2017-04-19 16:10 | NUR ---
Azul ([phone]) from [facility] Came to assess the patient at 2:00pm. Patient wanted to a board and care that would accept her dog and her own private room. Azul informed Liane from [facility] in [place] [address]. ([phone]) and she had a room available and willing to take patient's service dog. leather worker faxed paperwork to Liane ([phone]). Liane accepted the patient and patient is agreeing to go. leather worker informed patient's Ben Jose ([phone]) who stated that he can shredder picker the patient and take her to [facility]. leather worker will follow-up.
--- NOTE | 2017-04-19 16:19 | NUR ---
Farhad faxed referral to Melisa (fax:[phone]/phone: [phone]) from [facility] Intensive outpatient program. Farhad will follow-up
--- NOTE | 2017-04-19 16:23 | NUR ---
Farhad spoke to Melisa (fax:[phone]/phone: [phone]) from [facility] Intensive outpatient program who stated that they will cotton picker the patient on Friday April 21, 2017 from 8:30am-9:30am and will call prior to picking her up.
[2017-04-19 16:24] VITALS: BP 105/66
[2017-04-19 20:08] VITALS: BP 118/72
[2017-04-19] MEDS: MIRTAZAPINE 15 MG TABLET PO SCH (21:36)
[2017-04-19] MEDS: MAGNESIUM OXIDE 400 MG TABLET PO SCH (21:37)
[2017-04-19] MEDS: ACETAMINOPHEN 325 MG TABLET PO PRN (22:44)
[2017-04-20] MEDS: LORAZEPAM 1 MG TABLET PO PRN ×2 (04:20→10:06)
[2017-04-20 08:00] VITALS: BP 126/86
--- NOTE | 2017-04-20 09:13 | NUR ---
DR. HARRISON GAVE AN ORDER TO D/C HOLD AND D/C TO [facility]. PT. WITHOUT DISTRESS, DENIES SUICIDAL AND HOMICIDAL AND TO FOLLOW UP WITH PSYCH AND MEDICAL MEDS.
--- NOTE | 2017-04-20 09:17 | NUR ---
DR. SULLIVAN IS IN THE UNIT AND NOTIFIED ABOUT THE DISCHARGE AND SAID OK FOR DISCHARGE AND HE WROTE A PRESCRIPTION.
[2017-04-20 09:21] VITALS: BP 126/86
[2017-04-20] MEDS: AMLODIPINE BESYLATE 5 MG TABLET PO SCH (09:21)
[2017-04-20] MEDS: QUETIAPINE FUMARATE 25 MG TABLET PO SCH ×2 (09:21→12:35)
[2017-04-20] MEDS: MULTIVITAMINS,THERAGRAN 1 UDTAB TABLET PO SCH (09:21)
[2017-04-20] MEDS: THIAMINE HCL 100 MG TABLET PO SCH (09:21)
[2017-04-20] MEDS: FOLIC ACID 1 MG TABLET PO SCH (09:21)
[2017-04-20] MEDS: SULFAMETH/TRIMETH 800/160 MG 1 UDTAB TABLET PO SCH (09:40)
--- NOTE | 2017-04-20 10:09 | NUR ---
HOT PLATE PLYWOOD PRESS OPERATOR-NOTES PATIENT STATED I NEED ATIVAN FOR MY ANXIETY. ATIVAN 1MG P.O GIVEN PRN ORDER. WILL CONT. MONITORING FOR SAFETY AND BEHAVIOR.
--- NOTE | 2017-04-20 12:54 | NUR ---
PRESCRIPTIONS FAXED TO [facility] AT AND SPOKE TO SAEED IN THE PHARMACY AND CONFIRMED THAT THEY RECEIVED THE PRESCRIPTIONS. PHARMACY TELEPHONE # [phone].
--- NOTE | 2017-04-20 14:10 | NUR ---
Discharge Note: Patient will be discharged to [facility] [place] [id number] [place] [address] ([phone]). Patient's ex- Ben Jose ([phone]) was notified and agreed to pick her up via private vehicle. Patient and patient's ex- were agreeable with the discharge plan. Patient mood and affect were appropriate upon discharge. Patient denied suicidal and homicidal ideations. Patient was referred to [facility] ([phone]) [address] [place] [address] and has an intake appointment scheduled with Lia Zapata for April 28, 2017 at 2:00pm. Patient was referred to [facility] partial hospitalization program [phone]) [address] [place] [address]. Patient is scheduled to start the partial hospitalization program April 21, 2017 and will be picked up form 8:30am-9:30am. Patient was referred to [facility] ([phone]) [address] [facility] for substance abuse follow-up with an intake appointment scheduled for April 21 at 2:00pm. Patient agreed to follow-up with her primary care physician Dr. Guillory [phone]) [address] [place] [address] within 30 days. Facilitated info to IDT team who are in agreement with discharge arrangement. The multidisciplinary exitcare form was done, printed, signed, and given to the patient.
--- NOTE | 2017-04-20 14:16 | NUR ---
PIPE STRIPPER-NOTES PATIENT D/Cd TO [facility] TODAY. DR. HARRISON AND DR. SULLIVAN AWARE AND AGREES OF PATIENT DISCHARGE. PATIENT DID NOT VERBALIZE SI/HI,DENIES VISUAL/AUDITORY HALLUCINATIONS AT THE TIME OF DISCHARGE. PATIENT LEFT THE UNIT AMBULATORY IN STABLE CONDITION WITH ALL HER BELONGINGS INCLUDING CELLPHONE.RX WAS FAX TO [facility] PER CHARGE NURSE NOTES. PATIENT WAS PLYWOOD PATCHER BY HER SPOUSE [employer] [facility] VIA PRIVATE CAR.
[2017-04-20] MEDS ORDERED: MIRTAZAPINE 15 MG TABLET PO SCH (22:00)
== END 2017-04-20 14:15 | disposition home or self-care (01) | DRG 885 ==
LOC: ER 22:40 → GPS 04-09 16:23
PROVIDERS: ADMIT Psychiatry & Neurology Psychiatry; ATTEND Psychiatry & Neurology Psychiatry
DX: F33.3 Major depressive disorder, recurrent, severe with psychotic symptoms (principal); E43 Unspecified severe protein-calorie malnutrition; F10.229 Alcohol dependence with intoxication, unspecified; G92 Toxic encephalopathy; F10.221 Alcohol dependence with intoxication delirium; E87.1 Hypo-osmolality and hyponatremia; D69.6 Thrombocytopenia, unspecified; K70.10 Alcoholic hepatitis without ascites; F23 Brief psychotic disorder; N39.0 Urinary tract infection, site not specified; Z68.1 Body mass index [BMI] 19.9 or less, adult; F10.239 Alcohol dependence with withdrawal, unspecified; E83.42 Hypomagnesemia; G40.909 Epilepsy, unspecified, not intractable, without status epilepticus; E86.0 Dehydration; B96.1 Klebsiella pneumoniae [K. pneumoniae] as the cause of diseases classified elsewhere; E87.6 Hypokalemia; Z79.899 Other long term (current) drug therapy; Y90.9 Presence of alcohol in blood, level not specified; B96.20 Unspecified Escherichia coli [E. coli] as the cause of diseases classified elsewhere
CPT/HCPCS: 36415; 70450-TC; 80048-TC; 80053-TC; 80076-TC; 80164-TC; 80185-TC; 81000-TC; 83690-TC; 83735-TC; 84100-TC; 85025-TC; 85730-TC; 87081-TC; 87086-TC; 87186-TC; 97001-TC; A4606; G0480; J1200; J1630; J2060; J2270; J2405; J3411; J3475; J3490; J7030; J7060; Z7610

== ENCOUNTER 2019-02-24 15:57 | Inpatient (IN) | payer BC, MEDICARE, OTHER ==
[~2019-02-24] VITALS: Ht 160 cm; Wt 47.6 kg
[~2019-02-24 15:57] MED LIST: CARI350T PO
--- NOTE | 2019-02-24 16:00 | NUR ---
PT [facility]IE [facility], PT IS ON A 5150HOLD; PT ALERT TO SELF, -SOB, NAD NOTED, PT TO BED 6, VSS, PENDING MD FINNEGAN
[2019-02-24] MEDS ORDERED: OLANZAPINE 10 MG VIAL IM ONE ×2 (16:25→16:30)
[2019-02-24 16:29] LABS: BASOPHILS % (AUTO) 0.4 % (0.0-2.0); EOSINOPHILS % (AUTO) 0.1 % (0.0-6.0); HEMATOCRIT 26 % (33-45); HEMOGLOBIN 8.6 g/dL (11.5-14.8); LYMPHOCYTES # (AUTO) 1.3 /CMM (0.8-4.8); MEAN CORPUSCULAR HGB CONC 33 g/dl (31.0-36.0); MEAN CORPUSCULAR VOLUME 80 fL (82-100); MONOCYTES # (AUTO) 0.7 /CMM (0.1-1.30); MONOCYTES % (AUTO) 8.9 % (2.0-12.0); NEUTROPHILS # (AUTO) 5.8 /CMM (1.8-8.9); NEUTROPHILS % (AUTO) 73.6 % (43.0-81.0); PLATELET COUNT (AUTO) 403 /CMM (150-450); RED BLOOD CELL COUNT(AUTO) 3.28 MIL/uL (4.0-5.2); WHITE BLOOD COUNT (AUTO) 7.9 K/uL (4.3-11.0)
[2019-02-24 16:37] LABS: CALCIUM, SERUM 9.9 mg/dL (8.5-10.1); CARBON DIOXIDE 30 mmol/L (21-32); CHLORIDE 103 mmol/L (98-107); CREATININE 0.6 mg/dL (0.6-1.3); GLUCOSE 111 mg/dL (74-106); POTASSIUM 3.2 mmol/L (3.5-5.1); SODIUM SERUM 143 mmol/L (136-145); UREA NITROGEN, BLOOD 31 mg/dL (7-18)
[2019-02-24] MEDS ORDERED: HYDR12.5 PO (16:37)
[2019-02-24] MEDS ORDERED: PANT40TA4 PO (16:37)
[2019-02-24] MEDS ORDERED: ZOLP5TAB8 PO (16:37)
[2019-02-24] MEDS ORDERED: IBUP-1957 PO (16:37)
[2019-02-24] MEDS ORDERED: HYDR-3972 PO (16:37)
[2019-02-24 16:43] LABS: ACETAMINOPHEN 0 ug/ml (10-30); ALANINE AMINOTRANSFERASE 20 U/L (12-78); ALBUMIN 3.6 g/dL (3.4-5.0); ALCOHOL, BLOOD < 3 mg/dL (0-0); ALKALINE PHOSPHATASE 199 U/L (46-116); ASPARTATE AMINOTRANSFERASE 18 U/L (15-37); BILIRUBIN,DIRECT 0.1 mg/dL (0.0-0.2); BILIRUBIN,TOTAL 0.4 mg/dL (0.2-1.0); SALICYLATE 1.1 mg/dL (2.8-20.0); TOTAL PROTEIN, SERUM 7.4 g/dL (6.4-8.2)
[2019-02-24 16:44] LABS: APPEARANCE,URINE Clear (CLEAR); BILIRUBIN,URINE Negative (NEGATIVE); BLOOD, URINE Negative Ery/uL (NEGATIVE); COLOR,URINE Yellow (YELLOW); KETONES,URINE 15 (NEGATIVE); LEUKOCYTE ESTERASE ,URINE Small (NEGATIVE); NITRITE, URINE Negative (NEGATIVE); PH,URINE 6.5 (5.0-8.0); PROTEIN,URINE Trace mg/dl (NEGATIVE); UGLUCOSE Negative (NEGATIVE); UROBILINOGEN,URINE 0.2 EU/dL (0.2)
[2019-02-24 16:45] LABS: BACTERIA,URINE Few /HPF (None Seen); RBC,URINE 0-2 /HPF (0-2); SQUAMOUS EPITHELIAL CELL,UR Few /HPF (None Seen); WBC,URINE 0-2 /HPF (0-3)
--- NOTE | 2019-02-24 17:50 | NUR ---
REPORT GIVEN TO MOSES BRODY FOR HANH; PT WILL BE TRANSPORTED TO GPS
[2019-02-24] MEDS ORDERED: MAGNESIUM HYDROXIDE 30 ML UDC PO PRN (18:30)
[2019-02-24] MEDS ORDERED: POTASSIUM CHLORIDE 20 MEQ TAB.PRT.SR PO ONE (18:30)
[2019-02-24] MEDS ORDERED: MAG HYDROX/AL HYDROX/SIMETH 30 ML UDC PO PRN (18:30)
[2019-02-24] MEDS ORDERED: ZOLPIDEM TARTRATE 5 MG TABLET PO PRN (18:30)
[2019-02-24] MEDS ORDERED: IBUPROFEN 400 MG TABLET PO PRN (18:30)
[2019-02-24] MEDS ORDERED: ACETAMINOPHEN 325 MG TABLET PO PRN (18:30)
[2019-02-24 19:30] VITALS: BP 138/87
[2019-02-24 22:30] VITALS: BP 125/78
--- NOTE | 2019-02-24 23:00 | NUR ---
ADMISSION NOTES: ADMITTED THIS 63 Y/O FEMALE PATIENT ADMIT FROM [facility] ER[facility]ALLY [facility] , PT IS ON 5150 HOLD DANGER TO SELF ,GRAVELY DISABLE , PER HOLD PT. HAS BEEN ACTING OUT VERBAL AGGRESSIVE TOWARDS STAFF AND REFUSING TO TAKE HER MEDICATIONS, AND AH/VH HALLUCINATION , DISORIENTIONS CONFUSED UNABLE TO CONTRACT FOR SAFETY , UPON FACE TO FACE ASSESSMENT PATIENT IS A&O X 1 DISORGNIZED , CONFUSED ANXIOUS,DISHELVED, PARANOIA, PT. RESPONDING TO AH/VH , UNCOOPERTIVE, EASILY GETS AGITATED, PT. IS POOR HISTORIAN, POOR INSIGHT ,POOR JUDGEMENT , POOR HYGINE , PT. REFUSED TO TAKE SHOWER AT THIS TIME ,V/S WNMD Rhoda AWARE AND NOTIFIED OF THE ADMISSION, PT. REFUSED SKIN ASSESSMENT, BELONGINGS CONTRABAND WERE DONE , NURSING ASSESSMENT DONE ,PT. RIGHTS DISCUSS BY STONEMASON HELPER , PROVIDE THE PT. WITH HANDBOOK, AND MEDICATIONS GUIDE, ENVIRONMENTAL SAFETY CHECK DONE, ENCOURAGED PT. VERBALIZED ANY FEELING CONCERN TO STAFF, ORIENT TO UNIT POLICY, NO ACUTE DISTRESS NOTED,VITAL SIGNS WNL ,DENIES ANY PAIN AT THIS TIME ,WILL CONTINUE TO MONITOR FOR Q15 SAFETY AND BEHAVIOR.
[2019-02-25] MEDS ORDERED: Z GUARD REMEDY 2 OZ OINT TP PRN (07:30)
[2019-02-25 08:00] VITALS: BP 107/55
[2019-02-25] MEDS: Z GUARD REMEDY 2 OZ OINT TP SCH (08:10)
[2019-02-25] MEDS: PANTOPRAZOLE 40 MG TABLET.DR PO SCH (08:10)
[2019-02-25] MEDS: HYDROCHLOROTHIAZIDE 25 MG TABLET PO SCH (08:10)
[2019-02-25] MEDS: HYDROCODONE/APAP 5/325MG 1 EACH TABLET PO PRN (08:49)
[2019-02-25] MEDS: LORAZEPAM 0.5 MG TABLET PO PRN ×2 (09:29→17:51)
--- NOTE | 2019-02-25 09:50 | NUR ---
RN NOTE: PATIENT COMPLAINING OF PAIN AND ANXIETY. PRN ATIVAN AND PRN NORCO GIVEN. HYDROCHLOROTHIAZIDE HELD DUE TO PATIENT'S BP 107/55
--- NOTE | 2019-02-25 11:30 | NUR ---
WOUND CARE CONSULT: UNABLE TO DO SKIN ASSESSMENT AT THIS TIME DUE TO PT AGITATION. ADMISSION PHOTOS SHOW SACRAL SCARRING AND MULTIPLE AREAS OF BRUISING, PRESENT ON ADMISSION. RECOMMENDATIONS MADE FOR SKIN PROTECTION. DISCUSSED WITH NURSING STAFF. WILL SEE PT PT CONDITION PERMITS. MD IN AGREEMENT WITH PLAN OF CARE.
--- NOTE | 2019-02-25 11:37 | NUR ---
RN NOTE: OBSERVING PATIENT HAVE FREQUENT VAH. WHEN ASKED WHAT SHE SAW, SHE RESPONDED WITH "I SAW HIM", THEN CONTINUED TO STARE AT ME. PATIENT HAS BEEN TALKING TO HERSELF, AGITATED. NEEDS TO RE-DIRECT HER MULTIPLE TIMES.
--- NOTE | 2019-02-25 15:06 | NUR ---
RN NOTE: AFTER THE ATIVAN WAS GIVEN, PATIENT STILL SEEMS AGITATED, NOT LISTENING TO DIRECTION, TRYING TO CLIMB OVER HER CHAIR, TRYING TO GET UP WITHOUT ASSIST, BEING AGGRESSIVE TOWARDS STAFF AND IS NOT ABLE TO BE RE-DIRECTED. CONTACTED DR. GORMAN, AWAITING CALL BACK.
--- NOTE | 2019-02-25 15:17 | NUR ---
UR Note: TEDDY faxed a clinical to [facility] with attention to Glenny to the fax number: [phone].
--- NOTE | 2019-02-25 15:24 | NUR ---
TEDDY called Veronica from [facility] ([phone]) and confirmed that the pt can return to their facility. She stated that the SW can call when the pt is closer to discharge and stable.
[2019-02-25 16:00] VITALS: BP 141/91
[2019-02-25 17:03] LABS: ALBUMIN 3.3 g/dL (3.4-5.0); BILIRUBIN,TOTAL 0.3 mg/dL (0.2-1.0); CALCIUM, SERUM 9.9 mg/dL (8.5-10.1); CREATININE 0.6 mg/dL (0.6-1.3); POTASSIUM 3.8 mmol/L (3.5-5.1); TOTAL PROTEIN, SERUM 6.8 g/dL (6.4-8.2)
--- NOTE | 2019-02-25 18:00 | NUR ---
RN NOTE: PATIENT REMAINS ANXIOUS AND AGITATED. PRN ATIVAN GIVEN.
[2019-02-25 19:46] VITALS: BP 130/58
[2019-02-25] MEDS: LEVETIRACETAM SOL (5 ML) 100 MG/ML UDC PO SCH (20:17)
[2019-02-25] MEDS: QUETIAPINE FUMARATE 25 MG TABLET PO SCH (21:07)
[2019-02-26 07:54] LABS: BASOPHILS % (AUTO) 0.3 % (0.0-2.0); EOSINOPHILS % (AUTO) 1.3 % (0.0-6.0); HEMATOCRIT 25 % (33-45); HEMOGLOBIN 8.4 g/dL (11.5-14.8); LYMPHOCYTES # (AUTO) 1.9 /CMM (0.8-4.8); LYMPHOCYTES % (AUTO) 18.6 % (20.0-44.0); MEAN CORPUSCULAR HGB CONC 33 g/dl (31.0-36.0); MEAN CORPUSCULAR VOLUME 81 fL (82-100); MONOCYTES # (AUTO) 0.8 /CMM (0.1-1.30); MONOCYTES % (AUTO) 7.5 % (2.0-12.0); NEUTROPHILS # (AUTO) 7.2 /CMM (1.8-8.9); NEUTROPHILS % (AUTO) 72.3 % (43.0-81.0); PLATELET COUNT (AUTO) 425 /CMM (150-450)
[2019-02-26 08:00] VITALS: BP 131/80
[2019-02-26] MEDS: LEVETIRACETAM SOL (5 ML) 100 MG/ML UDC PO SCH ×2 (08:00→21:50)
[2019-02-26] MEDS: HYDROCHLOROTHIAZIDE 25 MG TABLET PO SCH (08:01)
[2019-02-26] MEDS: PANTOPRAZOLE 40 MG TABLET.DR PO SCH (08:02)
[2019-02-26] MEDS: Z GUARD REMEDY 2 OZ OINT TP SCH (08:03)
[2019-02-26 08:05] LABS: CALCIUM, SERUM 9.3 mg/dL (8.5-10.1); CREATININE 0.5 mg/dL (0.6-1.3); MAGNESIUM 1.6 mg/dL (1.8-2.4); PHOSPHORUS 2.8 mg/dL (2.5-4.9); POTASSIUM 3.6 mmol/L (3.5-5.1)
[2019-02-26] MEDS: LORAZEPAM 0.5 MG TABLET PO PRN (08:29)
--- NOTE | 2019-02-26 08:54 | NUR ---
RN NOTE: PATIENT COMPLAINING OF ANXIETY, PRN ATIVAN GIVEN
--- NOTE | 2019-02-26 09:50 | NUR ---
WOUND CARE CONSULT: PT PRESENTS WITH SACRAL SCARRING WHICH EXTENDS TO BILATERAL BUTTOCKS, PRESENT ON ADMISSION. PT IS VERY THIN AND BONY. RECOMMENDATIONS MADE FOR SKIN PROTECTION. DISCUSSED WITH NURSING STAFF. DIETARY CONSULT IN PLACE. WILL SEE PRN. Addendum: 02/26/19 at 0941 by APPLE KOTHARI WNDNU Amended: Links added.
--- NOTE | 2019-02-26 10:03 | NUR ---
UR Note: TEDDY received a call from Annamaria ([phone]), [facility] lead case manager, who stated that 02/26/19 is the last covered day for the pt and that a clinical review is due. TEDDY conducted a live review and received authorization for 02/27/19 and 02/28/19 with a review due on 02/28/19.
--- NOTE | 2019-02-26 11:14 | NUR ---
TEDDY called Veronica from [facility] ([phone]) and received collateral information for the pts psychosocial assessment.
--- NOTE | 2019-02-26 12:01 | NUR ---
Initial Discharge Plan: Pt currently resides at From [facility] located at [address] [place] [address]; ([phone]). Per pt, she would like to return to her home. TEDDY will work with the pt and the MD regarding appropriate discharge planning. SW will form a safe and proper discharge.
[2019-02-26] MEDS: CEPHALEXIN MONOHYDRATE 250 MG CAPSULE PO SCH ×3 (13:51→23:30)
--- NOTE | 2019-02-26 14:55 | NUR ---
Group Note: Pt did not attend group therapy session on 02/26/19 at 2pm discussing grief and loss. Pt is not appropriate for group therapy due to cognitive impairment.
[2019-02-26 16:00] VITALS: BP 118/62
[2019-02-26] MEDS: ENSURE ENLIVE 237 ML LIQUID (VANILLA) PO SCH (17:43)
[2019-02-26 20:08] VITALS: BP 116/66
[2019-02-26] MEDS: QUETIAPINE FUMARATE 25 MG TABLET PO SCH (21:51)
[2019-02-26] MEDS: MAGNESIUM OXIDE 400 MG TABLET PO SCH (21:52)
[2019-02-27] MEDS: HYDROCODONE/APAP 5/325MG 1 EACH TABLET PO PRN ×2 (00:40→22:13)
[2019-02-27] MEDS: CEPHALEXIN MONOHYDRATE 250 MG CAPSULE PO SCH ×4 (06:13→23:21)
[2019-02-27 08:00] VITALS: BP 122/78
[2019-02-27] MEDS: PANTOPRAZOLE 40 MG TABLET.DR PO SCH (08:30)
[2019-02-27] MEDS: LEVETIRACETAM SOL (5 ML) 100 MG/ML UDC PO SCH ×2 (08:31→21:32)
[2019-02-27] MEDS: HYDROCHLOROTHIAZIDE 25 MG TABLET PO SCH (08:31)
[2019-02-27] MEDS: Z GUARD REMEDY 2 OZ OINT TP SCH (08:33)
[2019-02-27] MEDS: ENSURE ENLIVE 237 ML LIQUID (VANILLA) PO SCH ×3 (08:56→17:03)
[2019-02-27] MEDS: LORAZEPAM 1 MG TABLET PO PRN ×2 (11:58→23:21)
--- NOTE | 2019-02-27 12:05 | NUR ---
GPS/RN-NOTES NOTED PATIENT VERY ANXIOUS,GETTING OUT OF BED UN ASSISTED,DELUSIONAL, STATED" I CAN SEE MY FATHER IN THE CEILING". REDIRECTED AND REORIENTED PATIENT BUT PATIENT GETS ANGRY AND SCREAM AT THE BLOCKING MACHINE TENDER. OFFERED ATIVAN AND AGREED, ATIVAN 1MG P.O GIVEN PRN ORDER. WILL CONT. MONITORING FOR SAFETY AND BEHAVIOR. UP
[2019-02-27] MEDS: QUETIAPINE FUMARATE 25 MG TABLET PO SCH ×3 (12:53→21:31)
--- NOTE | 2019-02-27 13:00 | NUR ---
GPS/RN-NOTES PATIENT LAYING IN BED AWAKE,ALERT ,CALM NO ACUTE DISTRESS NOTED.
[2019-02-27 16:08] VITALS: BP 126/75
[2019-02-27 20:31] VITALS: BP 135/78
[2019-02-27] MEDS: MAGNESIUM OXIDE 400 MG TABLET PO SCH (21:36)
[2019-02-28] MEDS: CEPHALEXIN MONOHYDRATE 250 MG CAPSULE PO SCH ×3 (05:24→17:02)
[2019-02-28 08:00] VITALS: BP 128/70
[2019-02-28] MEDS: ENSURE ENLIVE 237 ML LIQUID (VANILLA) PO SCH ×3 (08:27→16:57)
[2019-02-28] MEDS: QUETIAPINE FUMARATE 25 MG TABLET PO SCH ×3 (08:27→21:27)
[2019-02-28] MEDS: PANTOPRAZOLE 40 MG TABLET.DR PO SCH (08:27)
[2019-02-28] MEDS: LEVETIRACETAM SOL (5 ML) 100 MG/ML UDC PO SCH ×2 (08:27→21:27)
[2019-02-28] MEDS: HYDROCHLOROTHIAZIDE 25 MG TABLET PO SCH (08:28)
[2019-02-28] MEDS: Z GUARD REMEDY 2 OZ OINT TP SCH (09:13)
[2019-02-28] MEDS: HYDROCODONE/APAP 5/325MG 1 EACH TABLET PO PRN (11:13)
[2019-02-28] MEDS: LORAZEPAM 1 MG TABLET PO PRN (11:45)
--- NOTE | 2019-02-28 14:03 | NUR ---
UR Note: TEDDY called Annamaria ([phone]), [facility] employment case manager, and informed her that the pt is being discharged tomorrow. TEDDY stated that she would send a discharge clinical tomorrow.
--- NOTE | 2019-02-28 14:06 | NUR ---
TEDDY called Veronica from [facility] ([phone]) and left a voicemail stating that the pt is going to be discharged back tomorrow and the SW would like a call back.
--- NOTE | 2019-02-28 15:10 | NUR ---
GROUP NOTE: SW prompted pt to attend group discussing the topic of discharge planning, pt unable to participate in group due to cognitive impairment and unable to engage in conversation.
[2019-02-28 16:00] VITALS: BP 119/70
[2019-02-28 20:00] VITALS: BP 116/66
[2019-02-28] MEDS: MAGNESIUM OXIDE 400 MG TABLET PO SCH (22:13)
[2019-03-01] MEDS: CEPHALEXIN MONOHYDRATE 250 MG CAPSULE PO SCH ×3 (00:20→12:02)
[2019-03-01] MEDS: HYDROCODONE/APAP 5/325MG 1 EACH TABLET PO PRN (01:50)
--- NOTE | 2019-03-01 07:47 | NUR ---
RN NOTES RECEIVED PT AWAKE SITTING ON THE BED, DENIES PAIN. PT COOPERATIVE AND CONVERSANT AT THIS TIME. SAFETY ENSURED
[2019-03-01 08:00] VITALS: BP 122/65
[2019-03-01] MEDS: LORAZEPAM 1 MG TABLET PO PRN (08:36)
[2019-03-01] MEDS: LEVETIRACETAM SOL (5 ML) 100 MG/ML UDC PO SCH (08:36)
[2019-03-01 08:37] VITALS: BP 122/65
[2019-03-01] MEDS: HYDROCHLOROTHIAZIDE 25 MG TABLET PO SCH (08:37)
[2019-03-01] MEDS: PANTOPRAZOLE 40 MG TABLET.DR PO SCH (08:37)
[2019-03-01] MEDS: QUETIAPINE FUMARATE 25 MG TABLET PO SCH (08:38)
[2019-03-01] MEDS: Z GUARD REMEDY 2 OZ OINT TP SCH (08:46)
[2019-03-01] MEDS: ENSURE ENLIVE 237 ML LIQUID (VANILLA) PO SCH ×2 (08:57→13:00)
--- NOTE | 2019-03-01 09:31 | NUR ---
DR. GORMAN GAVE AN ORDER TO D/C HOLD AND D/C TO [facility] AND TO FOLLOW UP WITH PSYCH AND MEDICAL DOCTORS. PT. WITHOUT DISTRESS, DENIES SUICIDAL AND HOMICIDAL.
--- NOTE | 2019-03-01 11:24 | NUR ---
TEDDY called Veronica from [facility] ([phone]) and informed her that the pt is being discharged and she stated that she would send a substitute bus driver from her facility to pick the pt up.
--- NOTE | 2019-03-01 14:09 | NUR ---
RN DC NOTES PT CLEARED FOR DISCHARGE TO [facility], ALL DC INSTRUCTIONS GIVEN AND DC PAPERS SIGNED BY PT, PRESCRIPTION GIVEN TO THE PT. PT REFUSED SKIN ASSESSMENT AT TIMES OF DISCHARGE. PT WITH STABLE BEHAVIOR, NO SUICIDE/ HOMICIDAL IDEATION NOTED. LEFT UNIT VIA WHEELCHAIR ESCORTED BY OFFICE TECHNICIAN TO [facility].
--- NOTE | 2019-03-01 14:31 | NUR ---
Group Note: Pt attended group therapy session on 03/01/19 at 1:30pm discussing support systems but was not engaged and did not participate.
--- NOTE | 2019-03-01 15:56 | NUR ---
Discharge Note: Pt was discharged back to [facility] located at [address] [place] [address] around 2PM. Pt was picked up by Jhon ([phone]) from the [facility]. SW informed Veronica ([phone]) about the discharge. Upon discharge, the pt appeared to be in a euthymic mood and presented with a calm affect. Pt denied both suicidal and homicidal ideation as well as auditory and visual hallucinations. Pt was referred to be under the care of psychiatrist, Dr. Jolly Naylor, located at [address] [address]; ; and a fax was sent to: . Pt was also referred to agile qa tester, Dr. Cyrus Shaw, located at [address] [place] [address]; .
--- NOTE | 2019-03-01 16:02 | NUR ---
UR Note: TEDDY faxed a discharge clinical to [facility] with attention to Annamaria to the fax number: [phone].
== END 2019-03-01 14:05 | DRG 885 ==
LOC: ER 15:57 → GPS 17:05
PROVIDERS: ADMIT Psychiatry & Neurology Psychiatry; ATTEND Hospitalist
DX: F29 Unspecified psychosis not due to a substance or known physiological condition (principal); F03.91 Unspecified dementia, unspecified severity, with behavioral disturbance; Z68.1 Body mass index [BMI] 19.9 or less, adult; N39.0 Urinary tract infection, site not specified; F41.9 Anxiety disorder, unspecified; F32.9 Major depressive disorder, single episode, unspecified; I10 Essential (primary) hypertension; D64.9 Anemia, unspecified; E87.6 Hypokalemia; R79.89 Other specified abnormal findings of blood chemistry; Z91.14 Patient's other noncompliance with medication regimen; F10.10 Alcohol abuse, uncomplicated; G40.909 Epilepsy, unspecified, not intractable, without status epilepticus; B96.89 Other specified bacterial agents as the cause of diseases classified elsewhere
CPT/HCPCS: 36415; 80048-TC; 80053-TC; 80061-TC; 80076-TC; 80164-TC; 80177; 80305; 81000-TC; 83540-TC; 83735-TC; 84100-TC; 85025-TC; 87081-TC; 97116-TC; 97530-TC; G0480; J1953; J3490

== ENCOUNTER 2021-06-08 10:31 | Emergency (ER) | payer BC, OTHER ==
[~2021-06-08] VITALS: Ht 160 cm; Wt 49.9 kg
[~2021-06-08 10:31] MED LIST changes: -CARI350T PO; +HYDR-3972 PO; +HYDR12.5 PO; +PANT40TA49 PO; +ZOLP5TAB8 PO
--- NOTE | 2021-06-08 10:50 | NUR ---
TO BED 4, C/O R SHOULDER PAIN X 1 HOUR S/P MOVING PILLOWS. HX OF DISLOCATION. AAOX4, BREATHING EVEN AND NON LABORED, CHANGED INTO A GOWN, ATTACHED TO MONITOR.
--- NOTE | 2021-06-08 11:23 | NUR ---
CRITICAL CARE REGISTERED NURSE AT BEDSIDE
[2021-06-08] MEDS ORDERED: MORPHINE SULFATE INJ 4 MG/ML DISP.SYRIN ONE (11:28)
[2021-06-08] MEDS ORDERED: MORPHINE SULFATE INJ 2 MG/ML DISP.SYRIN IV ONE (11:30)
[2021-06-08] MEDS ORDERED: PROPOFOL 200 MG/20 ML VIAL IV ONE (12:00)
[2021-06-08] MEDS ORDERED: PROPOFOL 20 ML IV ONE (12:08)
--- NOTE | 2021-06-08 12:17 | NUR ---
1217 GAVE 25 MG OF DIPRIVAN, PATIENT STILL AWAKE 1219 GAVE ANOTHER 25MG OF DIPRIVAN, PATIENT STILL AWAKE 1221 GAVE ANOTHER 25MG OF DIPRIVAN
--- NOTE | 2021-06-08 12:23 | NUR ---
DEMAND PLANNING ANALYST AT BEDSIDE
--- NOTE | 2021-06-08 12:30 | NUR ---
WILL BE PICKED UP BY [facility] IN 20 MINUTES
[2021-06-08 14:04] VITALS: BP 156/89
== END 2021-06-08 14:04 | disposition home or self-care (01) ==
LOC: ER 10:40
DX: S43.014A Anterior dislocation of right humerus, initial encounter (principal); G40.909 Epilepsy, unspecified, not intractable, without status epilepticus; I10 Essential (primary) hypertension; F10.10 Alcohol abuse, uncomplicated; Y90.9 Presence of alcohol in blood, level not specified; Z79.899 Other long term (current) drug therapy; X58.XXXA Exposure to other specified factors, initial encounter; Y93.89 Activity, other specified; Y92.89 Other specified places as the place of occurrence of the external cause; Y99.8 Other external cause status
CPT/HCPCS: 23650; 73020; 73030; 96374; 99152; 99285; J2270; J2704; G0500

== ENCOUNTER 2022-03-05 04:21 | Emergency (ER) | payer BC ==
[~2022-03-05] VITALS: Ht 160 cm; Wt 47.6 kg
--- NOTE | 2022-03-05 04:32 | NUR ---
KELLIE FROM HOME C/O R SHOULDER POSSIBLE DISLOCATED. PATIENT TOOK [employer] PROFESSOR. PATIENT ALERT AND ORIENTED X4. AMBULATORY WITH NON LABORED BREATHING IN BED 11 ON MONITOR AND POX AWAITING MD FINNEGAN.
--- NOTE | 2022-03-05 04:46 | NUR ---
XRAY AT BEDSIDE
[2022-03-05] MEDS ORDERED: PROPOFOL 20 ML IV ONE (04:57)
--- NOTE | 2022-03-05 05:00 | NUR ---
CONSENT FOR RIGHT SHOULDER CLOSE REDUCTION WITH MODERATE SEDATION OBTAINED FROM PT
--- NOTE | 2022-03-05 05:04 | NUR ---
RT AND MD AT BEDSIDE FOR PROCEDURE, PT TOLERATED WELL 60MG OF PROPOFOL ADMINISTERED
[2022-03-05] MEDS ORDERED: PROPOFOL 200 MG/20 ML VIAL IV ONE (05:30)
--- NOTE | 2022-03-05 05:38 | NUR ---
PT IS ALERT AND ORIENTED BUT DROWSY, CONNECTED TO MONITOR. VSS. WILL CONTINUE TO MONITOR
--- NOTE | 2022-03-05 06:50 | NUR ---
IV removed. Catheter intact and site benign. Pressure and 4x4 applied to site. No bleeding noted.
--- NOTE | 2022-03-05 08:09 | NUR ---
PATIENT IN BED, ASLEEP EASILY EASILY AROUSABLE
--- NOTE | 2022-03-05 09:15 | NUR ---
IV removed. Catheter intact and site benign. Pressure and 4x4 applied to site. No bleeding noted.Patient discharged to home in stable condition. Written and verbal after care instructions given. Patient verbalizes understanding of instruction. Taxi is called in for the patient.
[2022-03-05 09:16] VITALS: BP 126/72
== END 2022-03-05 09:16 | disposition home or self-care (01) ==
LOC: ER 04:24
DX: M24.411 Recurrent dislocation, right shoulder (principal); I10 Essential (primary) hypertension; Z86.69 Personal history of other diseases of the nervous system and sense organs; Z79.899 Other long term (current) drug therapy
CPT/HCPCS: 23650; 73030 ×2; 99152; 99285; J2704; G0500

== ENCOUNTER 2022-07-15 18:41 | Emergency (ER) | payer BC ==
[~2022-07-15] VITALS: Ht 160 cm; Wt 47.6 kg
[2022-07-15 20:00] VITALS: BP 134/72
== END 2022-07-15 23:03 | disposition home or self-care (01) ==
LOC: ER 18:45
DX: F10.129 Alcohol abuse with intoxication, unspecified (principal); I10 Essential (primary) hypertension; Z79.899 Other long term (current) drug therapy; Y90.9 Presence of alcohol in blood, level not specified
CPT/HCPCS: 82962-TC

== ENCOUNTER 2024-12-26 11:23 | Inpatient (IN) | payer BC ==
[~2024-12-26] VITALS: Ht 160 cm; Wt 56.2 kg
[2024-12-26 12:03] LABS: BASOPHILS # (AUTO) 0.1 K/uL (0.0-0.2); BASOPHILS % (AUTO) 1.1 % (0.0-2.0); EOSINOPHILS % (AUTO) 0.1 % (0.0-6.0); HEMATOCRIT 35 % (33-45); HEMOGLOBIN 12.2 g/dL (11.5-14.8); LYMPHOCYTES # (AUTO) 0.5 K/uL (0.8-4.8); LYMPHOCYTES % (AUTO) 4.9 % (20.0-44.0); MEAN CORPUSCULAR HEMOGLOBIN 32 PG (26.0-33.0); MEAN CORPUSCULAR HGB CONC 35 g/dl (31.0-36.0); MEAN CORPUSCULAR VOLUME 92 fL (82-100); MONOCYTES # (AUTO) 1.2 K/uL (0.1-1.30); MONOCYTES % (AUTO) 11.6 % (2.0-12.0); NEUTROPHILS # (AUTO) 8.1 K/uL (1.8-8.9); NEUTROPHILS % (AUTO) 82.3 % (43.0-81.0); PLATELET COUNT (AUTO) 381 K/uL (150-450); RED CELL DISTRIBUTION WIDTH 15.2 % (11.5-15.0); WHITE BLOOD COUNT (AUTO) 9.9 K/uL (4.3-11.0)
[2024-12-26 12:15] LABS: CALCIUM, SERUM 9.9 mg/dL (8.5-10.1); CARBON DIOXIDE 25 mmol/L (21-32); CHLORIDE 98 mmol/L (98-107); GLUCOSE 149 mg/dL (74-106); POTASSIUM 4.2 mmol/L (3.5-5.1); SODIUM SERUM 135 mmol/L (136-145); UREA NITROGEN, BLOOD 19 mg/dL (7-18)
[2024-12-26 12:21] LABS: ALANINE AMINOTRANSFERASE 22 U/L (12-78); ALBUMIN 3.9 g/dL (3.4-5.0); ALKALINE PHOSPHATASE 118 U/L (46-116); ASPARTATE AMINOTRANSFERASE 19 U/L (15-37); BILIRUBIN,DIRECT 0.3 mg/dL (0.0-0.2); BILIRUBIN,TOTAL 1.2 mg/dL (0.2-1.0); LIPASE 33 U/L (16-77); TOTAL PROTEIN, SERUM 7.3 g/dL (6.4-8.2)
[2024-12-26] MEDS ORDERED: KETOROLAC TROMETHAMINE INJ 30 MG/ML VIAL ONE (12:26)
[2024-12-26] MEDS: KETOROLAC TROMETHAMINE INJ 30 MG/ML VIAL IV ONE (12:29)
[2024-12-26 12:32] LABS: LACTIC ACID 3.1 mmol/L (0.4-2.0)
[2024-12-26] MEDS ORDERED: LORAZEPAM INJ 2 MG/ML VIAL ONE (13:03)
[2024-12-26] MEDS: LORAZEPAM INJ 2 MG/ML VIAL IV ONE (13:10)
[2024-12-26] MEDS: IV NS 0.9% 1,000 ML BAG IV ONE (13:10)
[2024-12-26] MEDS ORDERED: ONDANSETRON HCL/PF 4 MG/2 ML VIAL ONE (13:16)
[2024-12-26] MEDS: ONDANSETRON HCL/PF - ER 4 MG/2 ML VIAL IV ONE (13:20)
[2024-12-26] MEDS ORDERED: CARI350T PO (14:06)
[2024-12-26] MEDS ORDERED: Z GUARD REMEDY 4 OZ OINT TP PRN (15:00)
[2024-12-26] MEDS ORDERED: MAGNESIUM HYDROXIDE 30 ML UDC PO PRN (15:00)
[2024-12-26] MEDS ORDERED: MAG HYDROX/AL HYDROX/SIMETH 30 ML UDC PO PRN (15:00)
[2024-12-26] MEDS: HYDROCODONE/APAP 5/325MG TABLET PO PRN (18:00)
[2024-12-26] MEDS: ALPRAZOLAM 0.25 MG TABLET PO ONE (22:19)
[2024-12-27] VITALS: BP 129/69; TEMP 98.1; O2SAT 100
[2024-12-27] MEDS: IV NS 0.9% 1,000 ML IV PRN (03:26)
[2024-12-27 07:05] LABS: APPEARANCE,URINE CLEAR (CLEAR); BILIRUBIN,URINE NEGATIVE (NEGATIVE); BLOOD, URINE 1+ Ery/uL (NEGATIVE); COLOR,URINE YELLOW (YELLOW); KETONES,URINE TRACE mg/dL (NEGATIVE); LEUKOCYTE ESTERASE ,URINE NEGATIVE (NEGATIVE); NITRITE, URINE NEGATIVE (NEGATIVE); PROTEIN,URINE 1+ mg/dl (NEGATIVE); UGLUCOSE NEGATIVE (NEGATIVE); UROBILINOGEN,URINE 0.2 EU/dL (0.2)
[2024-12-27 07:06] LABS: ADD URINE CULTURE NO; BACTERIA,URINE Rare /HPF (None Seen); SQUAMOUS EPITHELIAL CELL,UR Few /HPF (None Seen); WBC,URINE 0-2 /HPF (0-3)
[2024-12-27] MEDS: HYDROMORPHONE 1 MG/1 ML DISP.SYRIN IV ONE (07:37)
[2024-12-27 07:41] LABS: BASOPHILS % (AUTO) 0.9 % (0.0-2.0); EOSINOPHILS # (AUTO) 0.2 K/uL (0.0-0.7); EOSINOPHILS % (AUTO) 3.5 % (0.0-6.0); HEMATOCRIT 32 % (33-45); HEMOGLOBIN 10.8 g/dL (11.5-14.8); LYMPHOCYTES # (AUTO) 1.2 K/uL (0.8-4.8); MEAN CORPUSCULAR HEMOGLOBIN 32 PG (26.0-33.0); MEAN CORPUSCULAR HGB CONC 34 g/dl (31.0-36.0); MEAN CORPUSCULAR VOLUME 94 fL (82-100); MONOCYTES # (AUTO) 0.5 K/uL (0.1-1.30); MONOCYTES % (AUTO) 10.8 % (2.0-12.0); NEUTROPHILS # (AUTO) 2.9 K/uL (1.8-8.9); NEUTROPHILS % (AUTO) 59.8 % (43.0-81.0); PLATELET COUNT (AUTO) 250 K/uL (150-450); RED BLOOD CELL COUNT(AUTO) 3.42 MIL/uL (4.0-5.2); RED CELL DISTRIBUTION WIDTH 15.4 % (11.5-15.0); WHITE BLOOD COUNT (AUTO) 4.9 K/uL (4.3-11.0)
[2024-12-27] MEDS: ONDANSETRON HCL/PF 4 MG/2 ML VIAL IVP PRN (07:44)
[2024-12-27 08:11] LABS: CALCIUM, SERUM 8.8 mg/dL (8.5-10.1); PHOSPHORUS 2.5 mg/dL (2.5-4.9); POTASSIUM 3.8 mmol/L (3.5-5.1)
[2024-12-27 08:12] LABS: THYROID STIMULATING HORMONE 3.54 uIU/mL (0.358-3.74)
[2024-12-27 08:34] VITALS: BP 136/76; TEMP 98.6; O2SAT 96
[2024-12-27] MEDS: Magnesium 1GM/D5W 100ML PREMIX 100 ML IV SCH (09:46)
[2024-12-27] MEDS: DIAZEPAM 2 MG TABLET PO PRN (10:06)
[2024-12-27 11:11] LABS: THYROID STIMULATING HORMONE 2.86 uIU/mL (0.358-3.74)
[2024-12-27] MEDS: DIAZEPAM 5 MG TABLET PO PRN (15:04)
[2024-12-27 20:00] VITALS: BP 151/85; TEMP 98.4; O2SAT 96
[2024-12-27] MEDS ORDERED: ZOLPIDEM TARTRATE 5 MG TABLET PO PRN (22:00)
[2024-12-27] MEDS: ZOLPIDEM TARTRATE 5 MG TABLET PO PRN (22:29)
[2024-12-28 04:00] VITALS: BP 138/85; TEMP 98.4; O2SAT 97
[2024-12-28] MEDS: PANTOPRAZOLE 40 MG TABLET.DR PO SCH (08:57)
[2024-12-28 09:49] VITALS: TEMP 98.4
[2024-12-28] MEDS: ACETAMINOPHEN 325 MG TABLET PO PRN (09:49)
[2024-12-28] MEDS ORDERED: DICYCLOMINE HCL 10 MG CAPSULE PO SCH (12:00)
== END 2024-12-28 11:15 | disposition left against medical advice (07) | DRG 74 ==
LOC: ER 11:27 → MED 15:17 → TELE 16:02 → MED 12-28 10:09
PROVIDERS: ADMIT Internal Medicine; ATTEND Internal Medicine
DX: G90.89 Other disorders of autonomic nervous system (principal); S06.9X9A Unspecified intracranial injury with loss of consciousness of unspecified duration, initial encounter; E87.20 Acidosis, unspecified; E87.1 Hypo-osmolality and hyponatremia; F19.20 Other psychoactive substance dependence, uncomplicated; G40.909 Epilepsy, unspecified, not intractable, without status epilepticus; W19.XXXA Unspecified fall, initial encounter; S02.2XXA Fracture of nasal bones, initial encounter for closed fracture; Y92.009 Unspecified place in unspecified non-institutional (private) residence as the place of occurrence of the external cause; Z87.828 Personal history of other (healed) physical injury and trauma; Z79.899 Other long term (current) drug therapy; I10 Essential (primary) hypertension; R62.7 Adult failure to thrive; Z98.1 Arthrodesis status; F41.9 Anxiety disorder, unspecified; F32.A Depression, unspecified; S05.11XA Contusion of eyeball and orbital tissues, right eye, initial encounter; E83.42 Hypomagnesemia; D64.9 Anemia, unspecified
CPT/HCPCS: 36415; 70450-TC; 70486-TC; 71045-TC; 71250-TC; 72125-TC; 80048-TC; 80061-TC; 80076-TC; 81001; 82728-TC; 83540-TC; 83605-TC; 83690-TC; 83735-TC; 83880; 84100-TC; 84439-TC; 84443-TC; 84484-TC; 85025-TC; 87081-TC; 93307-TC; 93880-TC; 97112-TC; 97116-TC; 97530-TC; 97535-TC; A4223; G0378; J1171; J1885; J2060; J2405; J3475; J7030

== ENCOUNTER 2025-08-12 01:14 | Emergency (ER) | payer BC, OTHER ==
[~2025-08-12] VITALS: Ht 162.6 cm; Wt 68.0 kg
[~2025-08-12 01:14] MED LIST changes: +CARI350T PO; -PANT40TA49 PO
[2025-08-12] MEDS ORDERED: PANTOPRAZOLE 40 MG VIAL ONE (01:41)
[2025-08-12] MEDS ORDERED: ONDANSETRON HCL/PF 4 MG/2 ML VIAL ONE (01:41)
[2025-08-12] MEDS ORDERED: DICYCLOMINE HCL 10 MG CAPSULE PO ONE (01:42)
[2025-08-12] MEDS: DICYCLOMINE HCL 10 MG CAPSULE PO ONE (02:03)
[2025-08-12] MEDS: IV NS 0.9% 1,000 ML BAG IV ONE (02:03)
[2025-08-12] MEDS: ONDANSETRON HCL/PF 4 MG/2 ML VIAL IV ONE (02:03)
[2025-08-12] MEDS: PANTOPRAZOLE 40 MG VIAL IV ONE (02:03)
[2025-08-12 02:04] LABS: PLATELET COUNT (AUTO) 334 K/uL (150-450); RED BLOOD CELL COUNT(AUTO) 3.96 MIL/uL (4.0-5.2); RED CELL DISTRIBUTION WIDTH 16.3 % (11.5-15.0); WHITE BLOOD COUNT (AUTO) 7.4 K/uL (4.3-11.0)
[2025-08-12 02:22] LABS: CALCIUM, SERUM 8.1 mg/dL (8.5-10.1); CREATININE 1.0 mg/dL (0.6-1.3); SODIUM SERUM 132 mmol/L (136-145); UREA NITROGEN, BLOOD 18 mg/dL (7-18)
[2025-08-12 02:24] LABS: ALCOHOL, BLOOD 145 mg/dL (0-10); ASPARTATE AMINOTRANSFERASE 62 U/L (15-37); LACTIC ACID 3.4 mmol/L (0.4-2.0); TOTAL PROTEIN, SERUM 7.3 g/dL (6.4-8.2)
[2025-08-12] MEDS ORDERED: HALOPERIDOL LACTATE INJ 5 MG/ML VIAL ONE (02:58)
[2025-08-12] MEDS ORDERED: PHENOBARBITAL SODIUM 130 MG/ML VIAL ONE (02:59)
[2025-08-12] MEDS: PHENOBARBITAL SODIUM 130 MG/ML VIAL IV ONE (03:05)
[2025-08-12] MEDS: HALOPERIDOL LACTATE INJ 5 MG/ML VIAL IV ONE (03:05)
[2025-08-12] MEDS ORDERED: DICY10CA37 PO (03:38)
[2025-08-12] MEDS ORDERED: ONDA4TAB5 PO (03:38)
[2025-08-12] MEDS ORDERED: PANT40TA2 PO (03:38)
[2025-08-12 05:19] VITALS: BP 118/58; TEMP 98.5; O2SAT 97
== END 2025-08-12 05:21 | disposition home or self-care (01) ==
LOC: ER 01:16
DX: F10.129 Alcohol abuse with intoxication, unspecified (principal); I10 Essential (primary) hypertension; Z79.899 Other long term (current) drug therapy; Y90.9 Presence of alcohol in blood, level not specified
CPT/HCPCS: 99285; 96374; 96361; 96375; 85025; 83605; 83690; 83735; 36415; 80053; 86140; 80320; J1630; J2560; J2405; J7030; J2470; G0480